=== PATIENT | male | born 1965 | race Caucasian/White ===

== ENCOUNTER → 2021-08-30 | Outpatient (CLI) | payer OTHER ==
[2021-08-31 08:17] LABS: RHEUMATOID ARTHRITIS FACTOR <10.0 IU/mL (<14.0)
[2021-08-31 12:18] LABS: LYME TOTAL ANTIBODY EIA Negative (Negative)
[2021-08-31 15:13] LABS: ANGIOTENSIN-CONVERTING ENZYME 18 U/L (14-82); TREPONEMA PALLIDUM ANTIBODIES Non Reactive (Non Reactive)
[2021-08-31 17:11] LABS: ATYPICAL PANCA <1:20 titer (Neg:<1:20); CYTOPLASMIC (C-ANCA) <1:20 titer (Neg:<1:20); PERINUCLEAR (P-ANCA) <1:20 titer (Neg:<1:20)
[2021-09-01 18:09] LABS: QUANTIFERON MITOGEN VALUE >10.00 IU/mL (.); QUANTIFERON NIL VALUE 0.01 IU/mL (.); QUANTIFERON TB1 AG VALUE 0.01 IU/mL (.); QUANTIFERON TB2 AG VALUE 0.01 IU/mL (.); QUANTIFERON-TB GOLD PLUS Negative (Negative)
[2021-09-02 18:14] LABS: T PALLIDUM AB (FTA-AB) Non Reactive (Non Reactive)
== END ==
LOC: LAB 14:48
PROVIDERS: Ophthalmology
DX: H20.9 Unspecified iridocyclitis (principal)
CPT/HCPCS: 36415; 71046; 81374; 82164; 85652; 86038; 86140; 86256; 86431; 86618; 86777; 86778; 86780; 87389